=== PATIENT | male | born 1960 | race Caucasian/White ===

== ENCOUNTER → 2018-06-29 | Day surgery (SDC) | payer OTHER ==
[~2018-06-29] VITALS: Ht 177.8 cm; Wt 79.6 kg
[2018-06-29] VITALS (14 sets, daily range): BP systolic 110–135; BP diastolic 57–75; PULSE 82–103; RESP 12–22; Ht 177.8 cm; Wt 79.6 kg
[~2018-06-29] MED LIST: ASPI81TA52 PO; ATOR10TA65 PO; FENTAnyl 50 MCG/ML VIAL ONE; GLIM1TAB2 PO; HEPARIN 1000 UNITS/ML 10 ML INJ ONE; HEPARIN 1000 UNITS/NS (A-LINE) 1,000 ML ONE; IODIXANOL LOCM 100 ML BTL ONE; IODIXANOL LOCM 50 ML BTL ONE; LACTATED RINGER'S 1,000 ML IV SCH; LIDOCAINE 1% (MDV) 20 ML INJ ONE; METF500T24 PO; MIDAZOLAM 1 MG/ML 2 ML INJ ONE; SOD CHLORIDE 0.9% 500 ML ONE
--- NOTE | 2018-06-29 12:01 | SIPON ---
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
--- NOTE | 2018-06-29 13:50 | OPR ---
DATE OF OPERATION: 06/29/2018 PREOPERATIVE DIAGNOSIS: Right plantar foot nonhealing ulcer. POSTOPERATIVE DIAGNOSIS: Right plantar foot nonhealing ulcer. PROCEDURES PERFORMED: 1. Abdominal aortogram, right lower extremity runoff. 2. Intravascular ultrasound, right anterior tibial artery. 3. Percutaneous atherectomy and angioplasty of right anterior tibial artery. SURGEON: Yaneth Tripp MD ANESTHESIA: Local with sedation. ESTIMATED BLOOD LOSS: Minimal. COMPLICATIONS: No intraprocedural complications. INDICATIONS: A 57-year-old diabetic long time smoker with plantar foot ulcer that has been there for quite a while, has been more than a month. He has no palpable pedal pulses. I brought him in today for an angiogram and possible intervention in the right lower extremity for wound healing, limb salv age. DESCRIPTION OF PROCEDURE: The patient was brought to the labor specialist, placed on the table in supine pos ition. Left groin was prepped and draped in the usual sterile fashion. I began by infiltrating over the left common femoral artery using 10 mL of 1% Xylocaine. Using micropuncture needle to enter the left common femoral artery under ultrasound guidance, an 0.018 wire was inserted through the needle into the artery, then a micropuncture sheath was advanced over the wire into the artery. I then adva nced an 0.035 Bentson wire into the abdominal aorta, exchanged the micropuncture sheath for a 5-Frenc h sheath over the wire. I then advanced the rim catheter into the juxtarenal aorta and did an aortog mary and then used a Bentson wire to go up and over the bifurcation. I advanced the catheter down int o the right superficial femoral artery, did a runoff down the right lower extremity. FINDINGS OF ANGIOGRAPHY: The infrarenal aorta is patent. There is about a 50% stenosis in the mid i nfrarenal aorta. Both renal arteries are widely patent. There is a lot of irregularity in the infra renal aorta as well. The common external and internal iliac arteries bilaterally are widely patent w ith no significant disease. The right common, superficial and profunda femoral artery are widely pat ent. The right popliteal artery is widely patent above and below the knee. [facility], the peroneal artery is patent. It kind of dissipates in the distal calf. The posterior tibial artery is patent across the ankle and into the foot, it is dominant supply into the foot. There is a small plantar artery in the foot. The anterior tibial artery has about an 80% stenosis proximally a nd then there was very slow filling distally. I really could not get any contrast to go down into th e dorsalis pedis even with very delayed time to try and treat the anterior tibial artery stenosis pos sibly just not getting flow because of the proximal stenosis. I used an Advantage wire and advanced down into the popliteal artery, exchanged the 5-Iranian sheath in the left groin for 6-Iranian 70 cm sh eath which was left in the right popliteal artery. I then gave the patient 5000 units of heparin int ravenously. I then used an 0.035 angled glide cath and the Advantage wire to engage the anterior tib ial artery origin. I then used an 0.014 Iron Man wire which I advanced it down into the distal anter ior tibial. I then did the IVUS of the anterior tibial and the artery was measured about 3 mm in pippa meter, anterior tibial artery, the area where the severe stenosis was greater than 80% by IVUS. We then used a 1.8 Washburn mechanical atherectomy device to pass it through the area of stenosis in the proximal anterior tibial. I made 2 passes. I then angioplastied the proximal anterior tibial w ith a 3 mm x 10 cm balloon to 14 atmospheres for 1 minute. Completion angiogram showed no residual s tenosis in the proximal anterior tibial. Unfortunately, the anterior tibial was still occluded at th e ankle and there was not any flow into the dorsalis pedis, but there was now the same brisk flow thr ough the posterior tibial and anterior tibial all the way down to the ankle so may have some improvem ent in the perfusion of the foot. The posterior tibial was widely patent. There is really no other intervention. I did not see any reconstitution of the dorsalis pedis in all in the foot. We then pu lled the sheath back into the left external iliac artery. I did a completion angiogram of the groin on the left. The puncture site was in the left common femoral. I then used a 6-Iranian Angio-Seal de to seal the puncture site with good hemostasis. He tolerated the procedure well without any com plication. He was transferred to the recovery room in stable condition. Dictated By: YANETH JOHNSON/DECLAN Conf#: [id number] [facility]#: [id number] CC: DAMARIS HERNANDEZ MD; QUINTEN SCRUGGS MD;*[facility]*
== END | disposition home or self-care (01) ==
LOC: SDS 08:28
PROVIDERS: ATTEND Surgery Vascular Surgery
DX: E11.621 Type 2 diabetes mellitus with foot ulcer (principal); I73.9 Peripheral vascular disease, unspecified; I10 Essential (primary) hypertension
CPT/HCPCS: 37229; 37252; 75630; 76937; 80048; 81001; 82962; 85025; 85610; 85730; C1725; C1760; C1887; C1894; J1644; J2250; J3010; J7040; Q9967; Z7610; 81003